=== PATIENT | female | born 1985 | race Caucasian/White ===

== ENCOUNTER 2017-09-07 09:53 | Emergency (ER) | payer OTHER ==
[~2017-09-07 09:53] MED LIST: OXYC-689 PO
--- NOTE | 2017-09-07 10:23 | ER Report ---
History and Physical Time Seen By MD: 10:05 Hx. of Stated Complaint: PATIENT REPORTS CHEST PAIN THAT STARTED 2 DAYS AGO. PAIN IS IN LEFT SIDE OF CHEST AND RADIATES TO LEFT ARM HPI/ROS CHIEF COMPLAINT: Chest pain HISTORY OF PRESENT ILLNESS: Otherwise healthy 32-year-old female comes emergency Department today with a complaint of chest pain localized the left upper chest area she's had this intermittently for 3 weeks our primary care examination was done determined a confining wrong with her she is not on control pill she has no history of pulmonary emboli she has a cardiac history no history of diabetes and nonsmoker pain is localized pleuritic comes and goes no loosening alleviating factors has not than anything else for the pain patient has no additional complaints at this time REVIEW OF SYSTEMS: Respiratory: No cough, no dyspnea. Cardiovascular: Left-sided pleuritic chest discomfort Gastrointestinal: No vomiting, no abdominal pain. Musculoskeletal: No back pain. Remainder of the 14 system rev: Yes Allergies: Coded Allergies: No Known Drug Allergies (Verified , 04/08/08) Home Meds Reported Medications Oxycodone Hcl/Acetaminophen (Percocet 7.5/325 Mg) 7.5 Mg/325 Mg Tab, 1 TAB PO ONCE, 0 Refills 04/08/08 Reviewed Nurses Notes: Yes Old Medical Records Reviewed: Yes Hx Substance Use Disorder: No Hx Alcohol Use: No Constitutional Vital Sign - Last 24 Hours 09/07/17 09/07/17 09/07/17 09/07/17 09:56 09:58 10:00 10:40 Temp 98.6 Pulse 104 Resp 20 B/P (MAP) 130/87 (101) 134/110 134/110 (118) 105/87 (93) Pulse Ox 92 O2 Delivery Room Air 09/07/17 09/07/17 11:00 11:30 Pulse 70 B/P (MAP) 101/83 (89) 104/81 (89) Physical Exam General Appearance: The patient is alert, has no immediate need for airway protection and no current signs of toxicity. [ ] Eyes: Pupils equal and round no injection. Respiratory: Chest is non tender, lungs are clear to auscultation. Cardiac: regular rate and rhythm palpation of the left anterior upper chest wall on the rib line is consistent with reproducible pain and tenderness which is also consistent with her pain complaint no obvious masses lesions noted on exam Gastrointestinal: Abdomen is soft and non tender, no masses, bowel sounds normal. Musculoskeletal: Neck: Neck is supple and non tender. Extremities have full range of motion and are non tender. Skin: No rashes or lesions. [ ] DIFFERENTIAL DIAGNOSIS: After history and physical exam differential diagnosis was considered for costochondritis pulmonary emboli cardiac issues Medical Decision Making Data Points Result Diagram: 09/07/17 1055 09/07/17 1055 Laboratory Hematology Test 09/07/17 10:46 09/07/17 10:55 Urine Color Straw Urine Clarity Clear Urine pH 6.0 pH (4.8-9.5) Urine Specific Poston 1.005 Urine Protein Negative mg/dL (NEGATIVE) Urine Glucose (UA) Negative mg/dL (NEGATIVE) Urine Ketones 20 mg/dL (NEGATIVE) Urine Blood Negative (NEGATIVE) Urine Nitrite Negative (NEGATIVE) Urine Bilirubin Negative (NEGATIVE) Urine Urobilinogen Negative mg/dL (0.2-1.9) Urine Leukocyte Esterase Negative (NEGATIVE) Urine RBC None /HPF (0-2/HPF) Urine WBC <1 /HPF (0-5/HPF) Urine Squamous Epithelial Cells Many /LPF (</=FEW) Urine Bacteria Few /HPF (NONE-FEW) Urine Mucus None /HPF (NONE-FEW) Urine Opiates Screen Negative Urine Barbiturates Screen Negative Ur Tricyclic Antidepressants Screen Negative Urine Phencyclidine Screen Negative Urine Amphetamines Screen Negative Urine Benzodiazepines Screen Negative Urine Cocaine Screen Negative Urine Cannabinoids Screen Negative Red Blood Count 4.79 M/uL (4.17-5.56) Mean Corpuscular Volume 91.5 fL (80.0-96.0) Mean Corpuscular Hemoglobin 31.5 pg (26.0-33.0) Mean Corpuscular Hemoglobin Concent 34.5 g/dL (32.0-36.0) Red Cell Distribution Width 12.4 % (11.5-14.5) Mean Platelet Volume 9.2 fL (7.2-11.1) Neutrophils (%) (Auto) 66.0 % (39.4-72.5) Lymphocytes (%) (Auto) 25.9 % (17.6-49.6) Monocytes (%) (Auto) 5.8 % (4.1-12.4) Eosinophils (%) (Auto) 1.7 % (0.4-6.7) Basophils (%) (Auto) 0.6 % (0.3-1.4) Nucleated RBC Relative Count (auto) 0.0 /100WBC Neutrophils # (Auto) 5.6 K/uL (2.0-7.4) Lymphocytes # (Auto) 2.2 K/uL (1.3-3.6) Monocytes # (Auto) 0.5 K/uL (0.3-1.0) Eosinophils # (Auto) 0.1 K/uL (0.0-0.5) Basophils # (Auto) 0.1 K/uL (0.0-0.1) Nucleated RBC Absolute Count (auto) 0.00 K/uL D-Dimer Quantitative (PE/DVT) < 0.27 ug/ml (0-0.50) Sodium Level 141 mmol/L (137-145) Potassium Level 3.0 mmol/L (3.5-5.0) Chloride Level 100 mmol/L (98-107) Carbon Dioxide Level 24 mmol/L (22-31) Blood Urea Nitrogen 11 mg/dl (7-18) Creatinine 0.60 mg/dl (0.52-1.04) Glomerular Filtration Rate Calc > 60.0 Random Glucose 78 mg/dl (75-110) Calcium Level 9.6 mg/dl (8.4-10.2) Total Bilirubin 0.6 mg/dl (0.2-1.3) Aspartate Amino Transf (AST/SGOT) 30 U/L (0-35) Alanine Aminotransferase (ALT/SGPT) 38 U/L (0-56) Alkaline Phosphatase 46 U/L (0-126) Troponin I < 0.012 ng/ml Total Protein 7.9 gm/dl (6.3-8.2) Albumin 4.9 g/dl (3.5-5.0) Human Chorionic Gonadotropin, Qual Negative (NEGATIVE) Chemistry Test 09/07/17 10:46 09/07/17 10:55 Urine Color Straw Urine Clarity Clear Urine pH 6.0 pH (4.8-9.5) Urine Specific Poston 1.005 Urine Protein Negative mg/dL (NEGATIVE) Urine Glucose (UA) Negative mg/dL (NEGATIVE) Urine Ketones 20 mg/dL (NEGATIVE) Urine Blood Negative (NEGATIVE) Urine Nitrite Negative (NEGATIVE) Urine Bilirubin Negative (NEGATIVE) Urine Urobilinogen Negative mg/dL (0.2-1.9) Urine Leukocyte Esterase Negative (NEGATIVE) Urine RBC None /HPF (0-2/HPF) Urine WBC <1 /HPF (0-5/HPF) Urine Squamous Epithelial Cells Many /LPF (</=FEW) Urine Bacteria Few /HPF (NONE-FEW) Urine Mucus None /HPF (NONE-FEW) Urine Opiates Screen Negative Urine Barbiturates Screen Negative Ur Tricyclic Antidepressants Screen Negative Urine Phencyclidine Screen Negative Urine Amphetamines Screen Negative Urine Benzodiazepines Screen Negative Urine Cocaine Screen Negative Urine Cannabinoids Screen Negative White Blood Count 8.6 k/uL (4.5-11.0) Red Blood Count 4.79 M/uL (4.17-5.56) Hemoglobin 15.1 g/dL (12.0-16.0) Hematocrit 43.8 % (34.0-47.0) Mean Corpuscular Volume 91.5 fL (80.0-96.0) Mean Corpuscular Hemoglobin 31.5 pg (26.0-33.0) Mean Corpuscular Hemoglobin Concent 34.5 g/dL (32.0-36.0) Red Cell Distribution Width 12.4 % (11.5-14.5) Platelet Count 240 K/uL (150-450) Mean Platelet Volume 9.2 fL (7.2-11.1) Neutrophils (%) (Auto) 66.0 % (39.4-72.5) Lymphocytes (%) (Auto) 25.9 % (17.6-49.6) Monocytes (%) (Auto) 5.8 % (4.1-12.4) Eosinophils (%) (Auto) 1.7 % (0.4-6.7) Basophils (%) (Auto) 0.6 % (0.3-1.4) Nucleated RBC Relative Count (auto) 0.0 /100WBC Neutrophils # (Auto) 5.6 K/uL (2.0-7.4) Lymphocytes # (Auto) 2.2 K/uL (1.3-3.6) Monocytes # (Auto) 0.5 K/uL (0.3-1.0) Eosinophils # (Auto) 0.1 K/uL (0.0-0.5) Basophils # (Auto) 0.1 K/uL (0.0-0.1) Nucleated RBC Absolute Count (auto) 0.00 K/uL D-Dimer Quantitative (PE/DVT) < 0.27 ug/ml (0-0.50) Glomerular Filtration Rate Calc > 60.0 Calcium Level 9.6 mg/dl (8.4-10.2) Total Bilirubin 0.6 mg/dl (0.2-1.3) Aspartate Amino Transf (AST/SGOT) 30 U/L (0-35) Alanine Aminotransferase (ALT/SGPT) 38 U/L (0-56) Alkaline Phosphatase 46 U/L (0-126) Troponin I < 0.012 ng/ml Total Protein 7.9 gm/dl (6.3-8.2) Albumin 4.9 g/dl (3.5-5.0) Human Chorionic Gonadotropin, Qual Negative (NEGATIVE) Coagulation Test 09/07/17 10:55 D-Dimer Quantitative (PE/DVT) < 0.27 ug/ml Toxicology Test 09/07/17 10:46 Urine Opiates Screen Negative Urine Barbiturates Screen Negative Ur Tricyclic Antidepressants Screen Negative Urine Phencyclidine Screen Negative Urine Amphetamines Screen Negative Urine Benzodiazepines Screen Negative Urine Cocaine Screen Negative Urine Cannabinoids Screen Negative Urinalysis Test 09/07/17 10:46 Urine Color Straw Urine Clarity Clear Urine pH 6.0 pH (4.8-9.5) Urine Specific Poston 1.005 Urine Protein Negative mg/dL (NEGATIVE) Urine Glucose (UA) Negative mg/dL (NEGATIVE) Urine Ketones 20 mg/dL (NEGATIVE) Urine Blood Negative (NEGATIVE) Urine Nitrite Negative (NEGATIVE) Urine Bilirubin Negative (NEGATIVE) Urine Urobilinogen Negative mg/dL (0.2-1.9) Urine Leukocyte Esterase Negative (NEGATIVE) Urine RBC None /HPF (0-2/HPF) Urine WBC <1 /HPF (0-5/HPF) Urine Squamous Epithelial Cells Many /LPF (</=FEW) Urine Bacteria Few /HPF (NONE-FEW) Urine Mucus None /HPF (NONE-FEW) ED Course/Re-evaluation ED Course ED clinical course medical decision making 32-year-old female with pleuritic atypical left-sided chest discomfort negative for cardiac markers troponin and EKG chest x-ray most likely costochondritis a Saturn anti-inflammatories and discharged Decision to Disposition Date: Sep 07, 2017 Decision to Disposition Time: 11:48 Depart Departure Latest Vital Signs Vital Signs Date Time Temp Pulse Resp B/P (MAP) Pulse Ox O2 Delivery O2 Flow Rate FiO2 09/07/17 11:30 70 104/81 (89) 09/07/17 09:58 98.6 20 92 Room Air Impression: Primary Impression: Costochondritis Condition: Improved Disposition: HOME OR SELF-CARE Referrals: SALVADOR SALMERON 5 Days Patient Instructions: Costochondritis (DC) ALEX CARRIAZLES MD Sep 07, 2017 10:23
--- NOTE | 2017-09-07 10:23 | EKG ---
FACILITY: [facility] - [place] PATIENT NAME: GABY TOMLINSON : [id number] MR: [id number] V: [id number] EXAM DATE: ORDERING PHYSICIAN: ALEX CARRIZALES TECHNOLOGIST: TIERNEY Perez Reason : CHEST PAIN Blood Pressure : / mmHG Vent. Rate : 112 BPM Atrial Rate : 112 BPM P-R Int : 136 ms QRS Dur : 092 ms QT Int : 344 ms P-R-T Axes : 077 072 053 degrees QTc Int : 469 ms Sinus tachycardia Small Q waves inferolateral leads No acute appearing findings No previous ECGs available Confirmed by ELADIO MEYERS ([id number] on 09/08/2017 5:30:50 AM Referred By: ALL Confirmed By:ELADIO MEYERS
[2017-09-07 11:09] LABS: PLATELET COUNT, AUTOMATED 240 K/uL (150-450)
[2017-09-07 11:30] VITALS: BP 104/81
--- NOTE | 2017-09-07 11:42 | RADIOLOGY IMAGING REPORT ---
FACILITY: [facility] PATIENT NAME: Cora Quintero : 1985 MR: [id number] V: [id number] EXAM DATE: ORDERING PHYSICIAN: ALEX CARRIZALES TECHNOLOGIST: Location: [facility] Patient: Cora Quintero : 1985 Visit/Account:[id number] Date of Sevice: 09/07/2017 2 VIEWS CHEST INDICATION: Left-sided chest pain for two days COMPARISON: None available FINDINGS: Heart size within normal limits. Lungs are clear. There is no pneumothorax or pleural effusion. Subtle left curvature lower thoracic spine. No acute bony finding IMPRESSION: 1. No acute cardiopulmonary process. Report Dictated By: Alex Phipps MD at 09/07/2017 11:36 AM Report E-Signed By: Alex Phipps MD at 09/07/2017 11:37 AM WSN:[id number]
== END 2017-09-07 11:57 | disposition home or self-care (01) ==
LOC: ER 10:01
DX: M94.0 Chondrocostal junction syndrome [Tietze] (principal); R00.0 Tachycardia, unspecified
CPT/HCPCS: 36415; 71046; 80305; 81001; 82040; 82247; 82310; 82374; 82435; 82565; 82947; 84075; 84132; 84155; 84295; 84450; 84460; 84484; 84520; 84703; 85025; 85379; 93005; 99284